=== PATIENT | male | born 1995 | race Caucasian/White ===

== ENCOUNTER 2019-10-27 13:54 | Emergency (ER) | payer BC ==
[2019-10-27 14:20] VITALS: BP 127/77; PULSE 94; TEMP 98.8
[2019-10-27] MEDS ORDERED: SODIUM CHLORIDE 1,000 ML IV STA ×2 (14:22→17:08)
--- NOTE | 2019-10-27 14:29 | PDOC ---
History of Present Illness - General Chief Complaint: Syncope/Near Syncope Stated Complaint: FAINTED, LEFT ANKLE & FOOT PAIN Time Seen by Provider: 10/27/19 14:00 History Source: Patient Exam Limitations: No Limitations - History of Present Illness Initial Comments: 23 year old male with no PMH presented to ED for three syncopal episodes occurring last night. Pt reported he drank 3-5 glasses of wine, which he usually drinks on social occasions, had smoked some marijuana. He reported he felt in his usual state of health, and then awoke face down on the ground suddenly. Mother at bedside reported she heard the fall, called out to him immediately and he answered, within seconds she heard another fall. Pt reported he awoke on the ground, regained consciousness and awoke again on the ground. Mother reported by then she was able to get to the patient, he stood up and then had another syncopal episode. He reported after that he drank some water, still felt a bit lightheaded, but stayed home and tried to sleep. He reported generalized weakness today. He denied further syncopal episodes today. He denied chest pain, back pain, abdominal pain, nausea, vomiting, diarrhea. He reported he takes Fiber pills that make him dehydrated, and usually he will drink a large glass of water with it, but he thinks maybe he could have been more dehydrated with the ETOH use last night. He reported that during one of his falls he must have injured his left ankle, as now is is swollen and painful. He denied headache, neck pain. ROS General: admitted togeneralized weakness. denied fever, chills. HEENT: denied sore throat, rhinorrhea, ear pain. Cardiovascular: admitted to syncope, lightheadedness. denied chest pain, palpitations, diaphoresis. Respiratory: denied shortness of breath, cough, sputum production, hemoptysis. Gastrointestinal: denied abdominal pain, nausea, vomiting, diarrhea, constipation, blood in stool. Genitourinary: denied dysuria, increased urinary frequency, hematuria, urinary incontinence, flank pain. Back: denied back pain. Musculoskeletal: denied joint pain, muscle pain, joint swelling. Neurological: denied headache, dizziness, numbness, tingling, weakness. Integumentary: denied rash, laceration, abrasion. Hematologic/Lymphatic: denied bruising or bleeding. PE Constitutional: Well-nourished, Well-developed, appearing stated age. HEENT: head is normocephalic, atraumatic. EOMI. PERRLA. no posterior pharyngeal erythema.no tonsillar swelling or exudates bilaterally. uvula midline. no peritonsillar swelling, tenderness or abscess. no jaw tenderness or misalignment. abrasion to left cheek. Neck: supple. Full ROM. Cardiovascular: regular heart rhythm. no murmurs. no pericardial friction rub. Respiratory: clear to auscultation bilaterally. no crackles, rhonchi or wheezing. no stridor. Gastrointestinal: soft, nontender. normal bowel sounds. no rebound, guarding, masses. Extremities: peripheral pulses intact. no lower extremity edema. left ankle swollen, nontender. pain to palpation of left base 5th MT. no tenderness to palpation of navicular, lateral or medial malleolus of left foot/ankle. Neurological: CN 2-12 grossly intact. moves all four extremities. Psych: awake, alert, oriented x3. follows commands. answers questions appropriately. \ Past History - Past Medical History Allergies/Adverse Reactions: Allergies Allergy/AdvReac Type Severity Reaction Status Date / Time amoxicillin [From Augmentin] Allergy Unknown Verified 10/27/19 14:00 clavulanic acid Allergy Unknown Verified 10/27/19 14:00 [From Augmentin] Home Medications: Ambulatory Orders NK [No Known Home Medication] 10/27/19 COPD: No - Immunization History Immunization Up to Date: Yes - Psycho Social/Smoking Cessation Hx Smoking History: Current every day smoker Have you smoked in the past 12 months: Yes Information on smoking cessation initiated: Yes Hx Alcohol Use: Yes (PAST 2 DAYS HE HAS BEEN DRINKING) *Physical Exam - Vital Signs Last Vital Signs Temp Pulse Resp BP Pulse Ox 98.8 F 94 H 16 127/77 100 10/27/19 13:58 10/27/19 13:58 10/27/19 13:58 10/27/19 13:58 10/27/19 13:58 ED Treatment Course - LABORATORY CBC & Chemistry Diagram: 10/27/19 14:58 10/27/19 14:51 - RADIOLOGY Radiology Studies Ordered: Category Date Time Status ANKLE & FOOT-LEFT* [RAD] Stat Radiology 10/27/19 14:22 Ordered CHEST PA & LAT [RAD] Stat Radiology 10/27/19 14:17 Ordered Medical Decision Making - Medical Decision Making 23 year old male with above PMH presented to ED for 3 syncopal episodes occurring last night. Initial Vital Signs Temp Pulse Resp BP Pulse Ox 98.8 F 94 H 16 127/77 100 10/27/19 13:58 10/27/19 13:58 10/27/19 13:58 10/27/19 13:58 10/27/19 13:58 Afebrile. No tachycardia. No tachypnea. No hypotension. No hypoxia on room air. EKG performed at 1404: rate 94, regular rhythm, normal axis, normal intervals, QTc 452, no delta wave, flat T in III, otherwise no acute ST changes, notched P wave noted in III. Labs ordered: CBC, CMP, cardiac profile, TSH Imaging ordered: CXR, ankle/foot XR Medications ordered: normal saline bolus 1000 cc once 10/27/19 17:07 Laboratory Last Values WBC 10.9 K/mm3 (4.0-10.8) H 10/27/19 14:58 RBC 5.38 M/mm3 (4.00-5.60) 10/27/19 14:58 Hgb 16.3 GM/dl (11.7-16.9) 10/27/19 14:58 Hct 48.8 % (35.4-49) 10/27/19 14:58 MCV 90.7 fl (80-96) 10/27/19 14:58 MCH 30.2 pg (25.7-33.7) 10/27/19 14:58 MCHC 33.3 g/dl (32.0-35.9) 10/27/19 14:58 RDW 12.3 % (11.9-15.9) 10/27/19 14:58 Plt Count 271 K/MM3 (134-434) 10/27/19 14:58 MPV 7.7 fl (7.5-11.1) 10/27/19 14:58 Absolute Neuts (auto) 7.8 K/mm3 10/27/19 14:58 Neutrophils % 71.0 % (42.8-82.8) 10/27/19 14:58 Lymphocytes % 22.3 % (8-40) 10/27/19 14:58 Monocytes % 5.9 % (3.8-10.2) 10/27/19 14:58 Eosinophils % 0.1 % (0-4.5) 10/27/19 14:58 Basophils % 0.7 % (0-2.0) 10/27/19 14:58 PT with INR 13.1 SEC (10.2-13.0) H 10/27/19 14:51 INR 1.17 (0.82-1.09) 10/27/19 14:51 PTT (Actin FS) 29.2 SECONDS (25.2-36.5) 10/27/19 14:51 D-Dimer 282 ng/ml (0-500) 10/27/19 14:58 Sodium 137 mmol/L (136-145) 10/27/19 14:51 Potassium 4.3 mmol/L (3.5-5.1) 10/27/19 14:51 Chloride 104 mmol/L (98-107) 10/27/19 14:51 Carbon Dioxide 24 mmol/L (21-32) 10/27/19 14:51 Anion Gap 9 MMOL/L (8-16) 10/27/19 14:51 BUN 10.0 mg/dl (7-18) 10/27/19 14:51 Creatinine 0.8 mg/dl (0.55-1.3) 10/27/19 14:51 Est GFR (CKD-EPI)AfAm 146.96 10/27/19 14:51 Est GFR (CKD-EPI)NonAf 126.80 10/27/19 14:51 Random Glucose 111 mg/dl (74-106) H 10/27/19 14:51 Calcium 9.8 mg/dl (8.5-10) 10/27/19 14:51 Total Bilirubin 0.6 mg/dl (0.2-1) 10/27/19 14:51 AST 23 U/L (15-37) 10/27/19 14:51 ALT 22 U/L (13-61) 10/27/19 14:51 Alkaline Phosphatase 49 U/L (45-117) 10/27/19 14:51 Creatine Kinase 128 U/L (26-308) 10/27/19 14:51 Troponin I < 0.03 ng/ml (0.00-0.05) 10/27/19 14:51 Total Protein 8.1 g/dl (6.4-8.2) 10/27/19 14:51 Albumin 4.6 g/dl (3.4-5.0) 10/27/19 14:51 No leukocytosis. No anemia. D-dimer wnl. No electrolyte abnormalities. No LILY. No transaminitis. Beside POCUS Cardiac US performed by Dr. Gupta, EM Attending [facility] trained. CXR my and Dr. Gupta's view: sharp costophrenic angles. no cardiomegaly. no infiltrate. no large pneumothorax. -Pending official report R foot/ankle XR my and Dr. Gupta's view: questionable nondisplaced fracture of the 5th MT. -Pending official report Pt placed in hard sole shoe, given referral for ortho, call back placed for pt to be called with official XR report. Pt has crutches from home at bedside. Pt given cardiology outpatient referral, advised to not exercise or play sports until evaluated by cardiology. TSH pending, call back placed. Pt expressed understanding and agreed with plan for care. Pt discharged. Discharge - Discharge Information Problems reviewed: Yes Clinical Impression/Diagnosis: Syncope Condition: Improved Disposition: HOME - Admission No - Follow up/Referral Referrals: Henry Montana [Primary Care Provider] - Geovanny Aguilar MD [Staff Physician] - Joshua Rodriguez MD [Staff Physician] - Christiano Painter MD [Staff Physician] - Delfino Harkins MD [Staff Physician] - Donta Olivarez DO [Staff Physician] - Dimas Butterfield DO [Staff Physician] - Eugenio Velez MD [Staff Physician] - - Patient Discharge Instructions Patient Printed Discharge Instructions: DI for Syncope in Adults (Fainting), DI for Foot Fracture Additional Instructions: Follow up with your primary care doctor within 3 days regarding your Emergency Room visit. Your care is not complete until you follow up. Follow up with a teletypesetter within 3 days regarding your Emergency Room visit. Your care is not complete until you follow up. I have provided you with a referral. Follow up with an orthopedist within 7 days if your pain does not improve. I have provided you with a referral. Your X-ray of your foot showed a questionable fracture of the Fifth Metatarsal. A radiologist will read the X- ray in the morning, and if there is a change to the report you will be called. Your thyroid functioning testing was not back by time you left the ER, a call back was placed for you to be called with the results. Return to the Emergency Department for passing out, chest pain, shortness of breath, lightheadedness, continuous vomiting, visual changes, speech changes, changes to your gait, coughing up blood, inability to walk or any other new, worsening or concerning symptoms. Refrain from alcohol and marijuana use. Rest the foot above the level of the heart to decrease the swelling. Apply ice 20 minutes on and 20 minutes off. Take ibuprofen over the counter for pain. Take as advised on label. - Post Discharge Activity Work/Back to School Note: Back to Work, Back to School
--- NOTE | 2019-10-27 15:06 | PDOC ---
Attending Attestation - Resident Resident Name: Yo Zhoua - ED Attending Attestation I have performed the following: I have examined & evaluated the patient, The case was reviewed & discussed with the resident, I agree w/resident's findings & plan, Exceptions are as noted - HPI HPI: 10/27/19 15:03 23 yo M no pmhx here with c/o syncope x 3. denies precipitating cp. no sob. no recent fever or chills. did have wine last night and smoked some weed. denies other drug use. no ho pe or dvt. did twist ankle during one of the episodes. no hip r knee pain. unsure if hit head during fall. - Physicial Exam PE: 10/27/19 15:05 awake alert abrasion superficial left cheek. no facial bony step off. no midline spinal tenderness. otherwise head atraumatic. lungs clear bilat heart rrr no mrg abd soft nt nd ext wwp. no edema. no calf tenderness. skin warm and dry. ankle left with distal dorsal foot 4 th MT tenderness. 10/27/19 17:07 - Medical Decision Making 10/27/19 15:05 23 yo m with no pmhx here with recurrent syncope. differential dysrhtymia, infection tox causes. dhydration, pe. plan labs d dimer ekg. cxr . iv hydration. 10/27/19 17:06 Focused ED ultrasound was obtained shows normal contractility no pericardial effusion no signs of RV dilation or strain. Normal aortic outflow diameter less than 4 mm. IVC does show persistent collapsibility following 1 L impression normal cardiac echo IVc collapsible consistent with hypovolemia 10/27/19 17:12 xray of left foot with questionable nondisplaced left fifth distal mt fracture. placed in flat shoe, crutches, given ortho fu. Heart Score/ECG Review #1 General ECG Interpretation: Sinus Rhythm, Normal Rate (94), Normal Intervals, No acute ischemic changes
[2019-10-27 15:15] LABS: BASO % 0.7 % (0-2.0); EOS % 0.1 % (0-4.5); HEMATOCRIT 48.8 % (35.4-49); HEMOGLOBIN 16.3 GM/dl (11.7-16.9); LYMPH % 22.3 % (8-40); MCH 30.2 pg (25.7-33.7); MCHC 33.3 g/dl (32.0-35.9); MEAN CELL VOLUME 90.7 fl (80-96); MEAN PLT VOLUME 7.7 fl (7.5-11.1); MONO % 5.9 % (3.8-10.2); PLATELET COUNT 271 K/MM3 (134-434); RBC 5.38 M/mm3 (4.00-5.60); RDW 12.3 % (11.9-15.9); WHITE BLOOD COUNT 10.9 K/mm3 (4.0-10.8)
[2019-10-27 15:29] LABS: ALBUMIN 4.6 g/dl (3.4-5.0); BILIRUBIN,TOTAL 0.6 mg/dl (0.2-1); CALCIUM 9.8 mg/dl (8.5-10); CREATININE 0.8 mg/dl (0.55-1.3); POTASSIUM 4.3 mmol/L (3.5-5.1); TOT PROT 8.1 g/dl (6.4-8.2)
[2019-10-27 15:45] LABS: INR 1.17 (0.82-1.09); PROTHROMBIN TIME (PATIENT) 13.1 SEC (10.2-13.0)
[2019-10-27 17:30] VITALS: BMI 23.1
--- NOTE | 2019-10-28 13:37 | EKG ---
Test Reason : Blood Pressure : / mmHG Vent. Rate : 094 BPM Atrial Rate : 094 BPM P-R Int : 176 ms QRS Dur : 096 ms QT Int : 362 ms P-R-T Axes : 047 026 046 degrees QTc Int : 452 ms NORMAL SINUS RHYTHM POSSIBLE LEFT ATRIAL ENLARGEMENT NO PREVIOUS ECGS AVAILABLE Confirmed by COMPA GILLETTE MD ([id number]) on 10/28/2019 1:37:02 PM Referred By: JAUN ARIAS Confirmed By:COMPA GILLETTE MD
== END 2019-10-27 17:38 | disposition home or self-care (01) ==
LOC: FER 13:54
PROC: 3E0337Z Introduction of Electrolytic and Water Balance Substance into Peripheral Vein, Percutaneous Approach (ICD-10-PCS; principal; 2019-10-27)
DX: R55 Syncope and collapse (principal); F17.210 Nicotine dependence, cigarettes, uncomplicated; Z88.1 Allergy status to other antibiotic agents
CPT/HCPCS: 36415; 71046-TC-FY; 73610-TC-LT-FY; 73630-TC-LT; 80053; 82550; 84439; 84443; 84484; 85025; 85379; 85610; 85730; 93005; 93308; 99283-25; J7030